=== PATIENT | female | born 1975 | race Hispanic/Latino ===

== ENCOUNTER 2018-12-10 14:11 | Emergency (ER) | payer MEDICAID, OTHER ==
[2018-12-10] MEDS ORDERED: methylPREDNISolone Sod Succ/PF 125 MG/2 ML VIAL ONE (14:31)
== END 2018-12-10 14:45 | disposition home or self-care (01) ==
LOC: BURERS 14:11
DX: L25.9 Unspecified contact dermatitis, unspecified cause (principal)
CPT/HCPCS: 96372; J2930

== ENCOUNTER 2019-09-13 11:53 | Emergency (ER) | payer MEDICAID, OTHER ==
[2019-09-13] MEDS ORDERED: predniSONE 20 MG TAB ONE (12:10)
== END 2019-09-13 12:18 | disposition home or self-care (01) ==
LOC: BURERS 11:53
DX: L30.9 Dermatitis, unspecified (principal); F31.9 Bipolar disorder, unspecified; F41.9 Anxiety disorder, unspecified
CPT/HCPCS: 99282; J7512